=== PATIENT | male | born 1980 | race Caucasian/White ===

== ENCOUNTER 2022-08-11 14:53 | Outpatient (CLI) | payer OTHER, SELFPAY ==
[2022-08-11 17:06] LABS: Chloride* 102 mmol/L (96-114); Potassium* 4.2 mmol/L (3.6-5.1); Sodium* 141 mmol/L (135-149)
[2022-08-11 17:08] LABS: Bilirubin Total* 0.8 mg/dL (0.1-1.5); Carbon Dioxide* 31 mmol/L (20-32); Cholesterol* 189 mg/dL (90-199); Estimated Glomerular Filt Rate 98 ml/min
[2022-08-11 17:09] LABS: Alanine Aminotransferase* 31 U/L (4-50); Alkaline Phosphatase* 94 U/L (40-150); Aspartate Amino Transferase* 24 U/L (12-35); Blood Urea Nitrogen* 14 mg/dL (5-24); Calcium* 9.6 mg/dL (8.4-10.6); Glucose* 90 mg/dL (60-115); HDL Cholesterol* 34 mg/dL (>=40); LDL Cholesterol Calculated 106 mg/dL (<100); Total Protein* 7.6 g/dL (6.0-8.3); Triglycerides* 243 mg/dL (40-149)
== END 2022-08-11 14:54 | disposition home or self-care (01) ==
PROVIDERS: PCP Internal Medicine; Visit Provider Internal Medicine
DX: Z13.6 Encounter for screening for cardiovascular disorders (principal)
CPT/HCPCS: 80053; 80061

== ENCOUNTER 2022-08-23 19:58 | Outpatient (CLI) | payer OTHER, SELFPAY ==
--- NOTE | 2022-08-25 14:41 | W.PM.SLEEP ---
Sleep Study Details Details Interpreting Provider: Riki Franklin MD Date of Sleep Study: 08/23/22 Sleep Study Details: STUDY TYPE:? Hospital-based with CPAP titration ? BMI:? 32.3 ORDERING PROVIDER:? Agustin INDICATION:? Concerns about sleep apnea ? SLEEP SUMMARY:? Sleep time 416, efficiency 86.8, arousal index 7.4 RESPIRATORY SUMMARY:? Mean oxygen awake 95, asleep 94, minimum 83, 2.9 minutes oxygen between 80 and 88% AHI 20.8 RDI 23.8 REM AHI 55.3. Note that the entire diagnostic portion of the study was done in the supine position CPAP titration was performed patient was titrated to a pressure 7 which decreased AHI to 0. Pressure of 6 included REM stage sleep in the nonsupine position. This would be viewed as an incomplete titration as no supine REM sleep was seen PERIODIC LIMB MOVEMENTS OF SLEEP:? Pretreatment index 29.1, index with arousal 0.2. Post treatment index 9.6, index with arousal 0 CARDIAC:? Awake 61, asleep 58. No arrhythmias noted IMPRESSION:? Moderate obstructive sleep apnea with an AHI of 20.8 and REM dependency. CPAP titration was not complete as no supine REM sleep in RECOMMENDATION: Recommend AutoSet CPAP pressure 5-17 with download and follow up in 1 month
== END 2022-08-23 19:59 | disposition home or self-care (01) ==
LOC: SLEEP 19:59
PROVIDERS: PCP Internal Medicine; Visit Provider Internal Medicine
DX: G47.33 Obstructive sleep apnea (adult) (pediatric) (principal)
CPT/HCPCS: 95811

== ENCOUNTER 2022-12-23 09:37 | Outpatient (CLI) | payer OTHER, SELFPAY | END 2022-12-23 09:38 | disposition home or self-care (01) | PROVIDERS: PCP Internal Medicine; Visit Provider Surgery | DX: R13.10 Dysphagia, unspecified (principal) | CPT/HCPCS: 43239; J2250; J3010 ==

== ENCOUNTER 2024-11-09 08:49 | Outpatient (CLI) | payer OTHER, SELFPAY ==
--- NOTE | 2024-11-09 09:50 | W.ANESCHARGE ---
Anesthesia Charges Start Date/Time Anesthesia Start Date: 11/09/24 Anesthesia Start Time: 09:38 Stop Date/Time Anesthesia Stop Date: 11/09/24 Anesthesia Stop Time: 10:07 Coding CPT Codes CPT Codes: ANES UPR GI NDSC PX NOS - [id number] ([id number]) P2 - PATIENT W/MILD SYST DISEASE, QK - SENIOR SECURITY ENGINEER 2-4 CNCRNT ANES PROC, QX - WIRE WINDER SVC W/ MD MED DIRECTION
--- NOTE | 2024-11-09 10:05 | W.ANESCHARGE ---
Anesthesia Charges Start Date/Time Anesthesia Start Date: 11/09/24 Anesthesia Start Time: 09:38 Stop Date/Time Anesthesia Stop Date: 11/09/24 Anesthesia Stop Time: 10:07 Coding CPT Codes CPT Codes: ANES UPR GI NDSC PX NOS - [id number] ([id number]) P2 - PATIENT W/MILD SYST DISEASE, QX - INSURANCE CLAIM REPRESENTATIVE SVC W/ MD MED DIRECTION, QK - CONSERVATION EDUCATOR 2-4 CNCRNT ANES PROC
== END 2024-11-09 08:50 | disposition home or self-care (01) ==
LOC: OP CLINIC 08:50
PROVIDERS: PCP Internal Medicine; Visit Provider Internal Medicine Gastroenterology
DX: R13.10 Dysphagia, unspecified (principal); T18.108A Unspecified foreign body in esophagus causing other injury, initial encounter
CPT/HCPCS: 00731; 43235; J2704; J3490